=== PATIENT | male | born 1935 | race Caucasian/White ===

== ENCOUNTER 2020-06-02 16:45 | Emergency (ER) | payer MEDICARE, MEDICAID ==
--- NOTE | 2020-06-02 17:19 | ER Document Report ---
ED Medical Screen (RME) - General Chief Complaint: Altered Mental Status Stated Complaint: CHEST TIGHTNESS Time Seen by Provider: 06/02/20 17:09 Primary Care Provider: AMY PRAJAPATI PA-C [Primary Care Provider] - Follow up as needed TRAVEL OUTSIDE OF THE [place] IN LAST 30 DAYS: No - HPI Notes: 06/02/20 17:18 85-year-old male with history of hyper lipidemia, bilateral leg edema, early Alzheimer's and dementia to the emergency department with his son with complaints of acute on chronic altered mental status, lethargy, dizziness, chest tightness. Son lives across the street from dad and states that told her that he is having chest tightness since last night. Also states that he has been dizzy. He states he went and checked on him this morning and he told him that he felt this way and then fell asleep from 6 hours. Son states that he has some baseline confusion from his dementia but it seems little bit worse today. He also states that he does not think that the patient has been eating very much at all. Patient is not really able to give any history as he is certainly confused. He can tell me his birthday and his full name but he also thinks his birthday is the current date and he cannot tell me who the president is. He does not know what hospital he is. Often he will make comments that do not quite make sense either. I performed a brief medical screening exam on the patient determined that the patient needs further evaluation and management by main side provider. I have placed initial orders to help expedite care. - Related Data Allergies/Adverse Reactions: niacin [Niacin] Allergy (Verified 06/23/11 07:48) burning up inside Home Medications: amitiza, omeprazole, simvastatin, lasix Past Medical History - Social History Chew tobacco use (# tins/day): No Frequency of alcohol use: None Drug Abuse: None - Past Medical History Cardiac Medical History: Reports: Hx Hypertension Denies: Hx Heart Attack Pulmonary Medical History: Denies: Hx Asthma Neurological Medical History: Denies: Hx Cerebrovascular Accident, Hx Seizures GI Medical History: Reports: Hx Hiatal Hernia. Denies: Hx Hepatitis, Hx Ulcer Infectious Medical History: Denies: Hx Hepatitis Past Surgical History: Denies: Hx Open Heart Surgery, Hx Pacemaker Physical Exam - Vital signs Vitals: Temp Pulse Resp BP Pulse Ox 97.8 F 63 20 139/79 H 98 06/02/20 16:58 06/02/20 16:58 06/02/20 16:58 06/02/20 16:58 06/02/20 16:58 Course - Vital Signs Vital signs: Temp Pulse Resp BP Pulse Ox 97.8 F 63 20 139/79 H 98 06/02/20 17:10 06/02/20 16:58 06/02/20 16:58 06/02/20 16:58 06/02/20 16:58 Doctor's Discharge - Discharge Referrals: AMY PRAJAPATI PA-C [Primary Care Provider] - Follow up as needed
[2020-06-02 18:10] LABS: ABSOLUTE LYMPHOCYTES (AUTO) 1.9 10^3/uL (0.5-4.7); ABSOLUTE MONOCYTES (AUTO) 0.6 10^3/uL (0.1-1.4); ABSOLUTE NEUT (AUTO) 5.1 10^3/uL (1.7-8.2); BASOPHILS % (AUTO) 0.5 % (0-2); EOSINOPHILS % (AUTO) 0.5 % (0-6); HEMATOCRIT 36.9 % (37.9-51.0); HEMOGLOBIN 12.9 g/dL (13.5-17.0); LYMPHOCYTES % (AUTO) 24.7 % (13-45); MEAN CORPUSCULAR HEMOGLOBIN 30.6 pg (27.0-33.4); MEAN CORPUSCULAR HGB CONC 34.9 g/dL (32.0-36.0); MEAN CORPUSCULAR VOLUME 88 fl (80-97); MONOCYTES % (AUTO) 7.8 % (3-13); PLATELET COUNT 278 10^3/uL (150-450); RED BLOOD COUNT 4.21 10^6/uL (4.35-5.55); RED CELL DISTRIBUTION WIDTH 13.9 % (11.5-14.0); SEGMENTED NEUTROPHILS % (AUTO) 66.5 % (42-78); TOTAL CELLS COUNTED % (AUTO) 100 %; WHITE BLOOD COUNT 7.7 10^3/uL (4.0-10.5)
[2020-06-02 18:12] LABS: APPEARANCE,URINE CLEAR; BILIRUBIN,URINE NEGATIVE (NEGATIVE); COLOR,URINE YELLOW; GLUCOSE, URINE NEGATIVE (NEGATIVE); KETONES,URINE TRACE mg/dL (NEGATIVE); PROTEIN,URINE NEGATIVE (NEGATIVE)
[2020-06-02 18:14] LABS: INTERNATIONAL RATION (INR) 1.02; PROTHROMBIN TIME 13.6 SEC (11.4-15.4)
[2020-06-02 18:15] LABS: PARTIAL THROMBOPLASTIN TIME 34.3 SEC (23.5-35.8)
[2020-06-02 18:22] LABS: ALBUMIN 4.1 g/dL (3.5-5.0); ALKALINE PHOSPHATASE 78 U/L (38-126); ANION GAP 9 (5-19); ASPARTATE AMINO TRANSFERASE 27 U/L (17-59); BILIRUBIN,DIRECT 0.4 mg/dL (0.0-0.4); BILIRUBIN,TOTAL 1.5 mg/dL (0.2-1.3); BLOOD UREA NITROGEN 14 mg/dL (7-20); CALCIUM 9.3 mg/dL (8.4-10.2); CARBON DIOXIDE 30 mmol/L (22-30); CHLORIDE 100 mmol/L (98-107); GLUCOSE 91 mg/dL (75-110); POTASSIUM 3.6 mmol/L (3.6-5.0); TOTAL PROTEIN 7.2 g/dL (6.3-8.2)
--- NOTE | 2020-06-02 18:24 | RADIOLOGY REPORT (SQ) ---
EXAM DESCRIPTION: CHEST 2 VIEWS IMAGES COMPLETED DATE/TIME: 06/02/2020 6:02 pm REASON FOR STUDY: chest tightness, dizzy, lethargy COMPARISON: 05/22/2010 TECHNIQUE: Frontal and lateral radiographic views of the chest acquired. NUMBER OF VIEWS: Two view. LIMITATIONS: Mild RPO positioning. FINDINGS: LUNGS AND PLEURA: No pneumothorax. New nodularity noted in the left upper lobe, largest m easuring 11 mm. No consolidation or pleural effusion. MEDIASTINUM AND HILAR STRUCTURES: Stable. HEART AND VASCULAR STRUCTURES: Stable. BONES: No acute findings. HARDWARE: None in the chest. OTHER: No other significant finding. IMPRESSION: New nodularity noted in the left upper lobe, largest measuring 11 mm. No consolidation or pleural effusion. TECHNICAL DOCUMENTATION: JOB ID: [id number] [place]-72 2010 [email or web address]- All Rights Reserved Reading location - IP/workstation name: [email or web address]
--- NOTE | 2020-06-02 18:30 | RADIOLOGY REPORT (SQ) ---
EXAM DESCRIPTION: CT HEAD WITHOUT IMAGES COMPLETED DATE/TIME: 06/02/2020 6:19 pm REASON FOR STUDY: Altered mental status COMPARISON: None. TECHNIQUE: Axial images acquired through the brain without intravenous contrast. Images reviewed wit h bone, brain and subdural windows. Images stored on PACS. All CT scanners at this facility use dose modulation, iterative reconstruction, and/or weight based d osing when appropriate to reduce radiation dose to as low as reasonably achievable (ALARA). [facility]: Dose Right [facility]: CareDose [facility]: Dose Right [facility]: Teradose 4D [facility]: [employer] RADIATION DOSE: CT Rad equipment meets quality standard of care and radiation dose reduction techniq ues were employed. CTDIvol: 53.2 mGy. DLP: 1070 mGy-cm.. LIMITATIONS: None. FINDINGS: VENTRICLES: Normal size and contour. CEREBRUM: No masses. No hemorrhage. No midline shift. Age appropriate white matter. No evidence for a cute infarction. CEREBELLUM: No masses. No hemorrhage. No alteration of density. No evidence for acute infarction. EXTRA-AXIAL SPACES: No fluid collections. ORBITS AND GLOBE: No intra- or extraconal masses. Normal contour of globe without masses. CALVARIUM: No fracture. PARANASAL SINUSES: No fluid or mucosal thickening. SOFT TISSUES: No mass or hematoma. OTHER: No other significant finding. IMPRESSION: NO ACUTE INTRACRANIAL FINDINGS. EVIDENCE OF ACUTE STROKE: NO. TECHNICAL DOCUMENTATION: JOB ID: [id number] [place]-72 Quality ID # [id number]: Final reports with documentation of one or more dose reduction techniques (e.g., Au tomated exposure control, adjustment of the mA and/or kV according to patient size, use of iterative reconstruction technique) 2010 [employer]- All Rights Reserved Reading location - IP/workstation name: [email or web address]
--- NOTE | 2020-06-02 19:51 | ER Document Report ---
ED Dizziness/Weakness - General Chief Complaint: Altered Mental Status Stated Complaint: CHEST TIGHTNESS Time Seen by Provider: 06/02/20 17:09 Primary Care Provider: AMY PRAJAPATI PA-C [Primary Care Provider] - Follow up as needed Mode of Arrival: Ambulatory Information source: Relative - son Notes: 06/02/20 19:03 - ED Nursing Note by SCOTT HERRERA Acct Num: [id number] : 1935 Patient Age: 85 Addendum entered by SCOTT HERRERA RN 06/02/20 19:17: patient placed on ekg monitor. Original Note: patient presents with son. son states patient resides beside him, states the pa st 2 days he has not been acting right and has been rambling with his speech and yesterday he walked to his house without shoes and put his jacket on upside down. states today he came to his house and fell asleep in a recliner for 5 hours and when he awoke he was complaining of chest pain and dizziness. patients son also states he is concerned because he does not think patient is eating, states they prepare his meals for him and when his went to check on his house today, the meals they have been giving him have not been eaten. states he does have home health come to his house r/t a bed sore he has had over a year, reports it is currently being packed. this policy writer noted to have answered daughter in laws questions on the phone r/t patients care, noted daughter in law stated last week patient drank an entire bottle of thrush medication. states she is unsure what it was called and was unable to contact his primary MD about it. patient aware of patient alert and oriented to self and place. noted to be mumbling at times. 06/02/20 17:12 - ED Nursing Note by TYESHA PERALTA Acct Num: [id number] : 1935 Patient Age: 85 Addendum entered by TYESHA PERALTA RN 06/02/20 17:19: patient able to state his name and birthday Original Note: patient brought in by son. patients son states the patient lives across the street from him, states the patient walked to his house and seemed disoriented. patients son states the patient fell asleep in the chair for 6-7 hours. patient son states the patient complained of chest tightness and dizziness upon awakening. patients son states he seems altered. ED Medical Screen ([facility] notes) - General Chief Complaint: Altered Mental Status Stated Complaint: CHEST TIGHTNESS Time Seen by Provider: 06/02/20 17:09 Primary Care Provider: AMY PRAJAPATI PA-C [Primary Care Provider] - Follow up as needed TRAVEL OUTSIDE OF THE [place] IN LAST 30 DAYS: No - HPI Notes: 06/02/20 17:18 85-year-old male with history of hyper lipidemia, bilateral leg edema, early Alzheimer's and dementia to the emergency department with his son with complaints of acute on chronic altered mental status, lethargy, dizziness, chest tightness. Son lives across the street from dad and states that told her that he is having chest tightness since last night. Also states that he has been dizzy. He states he went and checked on him this morning and he told him that he felt this way and then fell asleep from 6 hours. Son states that he has some baseline confusion from his dementia but it seems little bit worse today. He also states that he does not think that the patient has been eating very much at all. Patient is not really able to give any history as he is certainly confused. He can tell me his birthday and his full name but he also thinks his birthday is the current date and he cannot tell me who the president is. He does not know what hospital he is. Often he will make comments that do not quite make sense either. I performed a brief medical screening exam on the patient determined that the patient needs further evaluation and management by main side provider. I have placed initial orders to help expedite care. MY NOTES 85-year-old male arrives with history of having dizziness chest tightness and confusion but has a history also of dementia. Positive for new nodule in lung on chest x-ray but otherwise labs positive for ketones in urine. I spoke with his son Jd who is the third generation named Jd. The patient actually goes by Rafa which was accidentally put by the doctor when he was born as" Rafa Miles". Patient himself is very confused and only stands with assistance. He lives alone according to his son ; son reports all the patient's food is brought to him from the family. He no longer cooks for himself but does do simple ADLs. He reports his father is very stubborn and does not want to live with children or fci. Patient sticks out his tongue several times after showing me his thumb. He denies any chest pain denies any abdominal pain. His son reports that he used to be a commercial relationship manager for years and was a heavy drinker starting with whiskey since he was 9 years old. He stopped smoking in the 1980s but was a heavy smoker as well. TRAVEL OUTSIDE OF THE [place] IN LAST 30 DAYS: No - HPI Patient complains to provider of: Altered mental status Onset: Yesterday Onset/Duration: Sudden, Persistent, Worse Quality of pain: No pain Severity: Mild Associated symptoms: Confused Baseline gait: Walks w/o assistance - Related Data Allergies/Adverse Reactions: niacin [Niacin] Allergy (Verified 06/23/11 07:48) burning up inside Home Medications: amitiza, omeprazole, simvastatin, lasix Past Medical History - General Information source: Relative - Social History Smoking Status: Former Smoker Cigarette use (# per day): No Chew tobacco use (# tins/day): No Smoking Education Provided: No Frequency of alcohol use: None Drug Abuse: None Lives with: Alone Family History: Reviewed & Not Pertinent Patient has suicidal ideation: No Patient has homicidal ideation: No - Past Medical History Cardiac Medical History: Reports: Hx Hypertension Denies: Hx Heart Attack Pulmonary Medical History: Denies: Hx Asthma Neurological Medical History: Denies: Hx Cerebrovascular Accident, Hx Seizures GI Medical History: Reports: Hx Hiatal Hernia. Denies: Hx Hepatitis, Hx Ulcer Infectious Medical History: Denies: Hx Hepatitis Past Surgical History: Denies: Hx Open Heart Surgery, Hx Pacemaker Review of Systems - Review of Systems Constitutional: No symptoms reported, Recent illness - thrush in mouth EENT: No symptoms reported Cardiovascular: No symptoms reported Respiratory: No symptoms reported Gastrointestinal: No symptoms reported Genitourinary: No symptoms reported Male Genitourinary: No symptoms reported Musculoskeletal: No symptoms reported Skin: No symptoms reported Hematologic/Lymphatic: No symptoms reported Neurological/Psychological: See HPI, Confusion, Weakness. denies: Depression, Anxiety, Hallucinations, Sensory change, Homicidal ideation, Gait changes, Paralysis, Speech impairment, Suicidal ideation Physical Exam - Vital signs Vitals: Temp Pulse Resp BP Pulse Ox 97.8 F 63 20 139/79 H 98 06/02/20 16:58 06/02/20 16:58 06/02/20 16:58 06/02/20 16:58 06/02/20 16:58 Interpretation: Hypertensive - General General appearance: Alert - HEENT Head: Normocephalic, Atraumatic Eyes: Normal Pupils: PERRL Nasal: Normal Mouth/Lips: Normal Mucous membranes: Dry Pharynx: Normal Neck: Normal - Respiratory Respiratory status: No respiratory distress Chest status: Nontender Breath sounds: Normal Chest palpation: Normal - Cardiovascular Rhythm: Regular Heart sounds: Normal auscultation Murmur: No - Abdominal Inspection: Normal Distension: No distension Bowel sounds: Normal Tenderness: Nontender Organomegaly: No organomegaly - Rectal Prostate: Other - deferred - Genitourinary Scrotum: Other - deferred - Back Back: Normal - Extremities General upper extremity: Normal inspection, Nontender, Normal color, Normal ROM, Normal temperature General lower extremity: Normal inspection, Nontender, Normal color, Normal ROM, Normal temperature, Normal weight bearing. No: Teodoro's sign - Neurological Neuro grossly intact: No Cognition: Confused Orientation: Disoriented to place, Disoriented to time, Disoriented to events Sue Coma Scale Eye Opening: To Voice [place] Coma Scale Verbal: Confused [place] Coma Scale Motor: Obeys Commands Sue Coma Scale Total: 13 Motor strength normal: LUE, RUE, LLE, RLE - Psychological Associated symptoms: Confused - Skin Skin Temperature: Warm Skin Moisture: Dry Skin Color: Normal Course - Vital Signs Vital signs: Temp Pulse Resp BP Pulse Ox 97.8 F 80 17 166/96 H 100 06/02/20 17:10 06/02/20 19:58 06/02/20 19:58 06/02/20 19:58 06/02/20 19:58 - Laboratory Result Diagrams: 06/02/20 17:33 06/02/20 17:33 Laboratory results interpreted by me: 06/02/20 06/02/20 06/02/20 17:33 17:33 17:33 RBC 4.21 L Hgb 12.9 L Hct 36.9 L Total Bilirubin 1.5 H Urine Ketones TRACE H Urine Blood MODERATE H Urine Urobilinogen 4.0 H - Diagnostic Test Radiology reviewed: Reports reviewed - EKG Interpretation by Me EKG shows normal: Sinus rhythm Rate: Normal Rhythm: NSR - 64 Critical Care Note - Critical Care Note Comments: I discussed this case with Dr. Lara around 2300 and she was see this patient in her office. 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 Lara oncologist tomorrow we will have her name and address on the referral. Take medicines Levaquin 1 tablet daily for 7 days for UTI. Encourage fluids. Prescriptions: Levofloxacin [Levaquin 500 mg Tablet] 500 mg PO DAILY #7 tablet Referrals: AMY PRAJAPATI PA-C [Primary Care Provider] - Follow up as needed ANTWON SHOOK MD [ACTIVE STAFF] - Follow up as needed
--- NOTE | 2020-06-02 20:15 | EKG REPORT ---
SEVERITY:- NORMAL ECG - SINUS RHYTHM : Confirmed by: Julia Sloan MD 02-Jun-2020 20:15:18
--- NOTE | 2020-06-02 22:03 | RADIOLOGY REPORT (SQ) ---
EXAM DESCRIPTION: X-RAY ABDOMEN, two VIEWS CLINICAL HISTORY: Hyperbilirubinemia COMPARISON: None TECHNIQUE: Two views of the abdomen and pelvis. FINDINGS: The visualized lung bases are clear. There is no evidence of free air under the hemidiaphragms. Iodinated contrast is present within the bilateral renal collecting systems consistent with recent contrast-enhanced CT. The bowel gas pattern is nonspecific with prominent segments of gas filled bowel throughout the abdomen. Multilevel degenerative spine changes are present, incompletely evaluated on this exam. IMPRESSION: Multiple prominent segments of gas filled bowel throughout the abdomen and a nonspecific pattern. If further evaluation of the biliary system is required, ultrasound could be considered.
--- NOTE | 2020-06-02 22:09 | RADIOLOGY REPORT (SQ) ---
EXAM DESCRIPTION: [facility]Lex: CT CHEST WITH IV CONTRAST CLINICAL HISTORY: 85 years Male; new nodule TECHNIQUE: CT of the chest using intravenous contrast. All CT scans at this facility use dose modulation, iterative reconstruction, and/or weight based dosing when appropriate to reduce radiation dose to as low as reasonably achievable. COMPARISON: None. FINDINGS: Chest: Lungs: Minimal bilateral pleural effusions. Multiple pulmonary nodules are noted: 1. Left upper lobe: 7 nodules, largest 9 mm. 2. Left lower lobe: 2 nodules, largest 8 mm. 3. Right upper lobe: 6 mm nodule 4. Right middle lobe: 2 nodules, largest 8 mm. No acute infiltrates. No pneumothorax. Mediastinum:No mediastinal mass or adenopathy. Mediastinal vascular structures are unremarkable. Bones: Chronic degenerative changes of the thoracic spine, with multilevel anterior bridging osteophytes suggesting DISH. No suspicious focal bone lesion. IMPRESSION: 1. Multiple bilateral pulmonary nodules, as described. These are suspicious for metastatic disease.Consider a PET/CT or tissue sampling for the largest nodule (left upper lobe); if largest nodule is determined to be benign, recommend a non-contrast Chest CT at 3-6 months to follow up on other nodules, and another non-contrast Chest CT at 18-24 months. Alternatively, a non-contrast Chest CT at 3 months may be performed to follow up on all nodules, with another non-contrast Chest CT at 18-24 months. For a low-risk patient both of the 18-24 month follow-ups are optional. These guidelines do not apply to immunocompromised patients and patients with cancer. Follow up in patients with significant comorbidities as clinically warranted. For lung cancer screening, adhere to Lung-RADS guidelines. Reference: Radiology. 2017; 284(1):228-43. 2. No acute pulmonary infiltrates.
[2020-06-02] MEDS ORDERED: NORMAL SALINE 500 ML IV ONE (22:39)
[2020-06-02] MEDS ORDERED: LEVOFLOXACIN 750 MG TABLET PO ONE (22:39)
[2020-06-02 23:57] VITALS: BP 147/74
== END 2020-06-03 00:04 | disposition home or self-care (01) ==
LOC: ER 16:45
DX: N30.00 Acute cystitis without hematuria (principal); C78.00 Secondary malignant neoplasm of unspecified lung; F10.27 Alcohol dependence with alcohol-induced persisting dementia; R53.1 Weakness; R41.0 Disorientation, unspecified; R07.9 Chest pain, unspecified; R42 Dizziness and giddiness; R63.0 Anorexia; Z87.891 Personal history of nicotine dependence; I10 Essential (primary) hypertension; Z79.899 Other long term (current) drug therapy
CPT/HCPCS: 93005; 99285; 36415; 87040; 87070; 87086; 87880; 83605; 83735; 85025; 85610; 85730; 86592; 80053; 81001; 84484; 86701; 71046; 74018; 70450; 71260; 93010; J7040; A9270